=== PATIENT | female | born 1985 | race Caucasian/White ===

== ENCOUNTER 2017-03-26 07:02 | Emergency (ER) | payer MEDICAID ==
[~2017-03-26] VITALS: Ht 162.6 cm; Wt 56.7 kg
--- NOTE | 2017-03-26 07:05 | NUR ---
BB FRIENDS: LACERATION ON ELBOW, RIGHT 5TH DIGIT & PALM, AND RIGHT BUTTOCK S/P FALLING ON A GLASS TABLE X20 MIN [employer]ERK. TETANUS 5 YEARS AGO
--- NOTE | 2017-03-26 11:39 | NUR ---
Patient discharged to home in stable condition. Written and verbal after care instructions given. Patient verbalizes understanding of instruction.
[2017-03-26 11:41] VITALS: BP 123/75
== END 2017-03-26 11:43 | disposition home or self-care (01) ==
LOC: ER 07:03
DX: S51.011A Laceration without foreign body of right elbow, initial encounter (principal); S41.011A Laceration without foreign body of right shoulder, initial encounter; S61.411A Laceration without foreign body of right hand, initial encounter; W19.XXXA Unspecified fall, initial encounter; Y93.89 Activity, other specified; Y92.89 Other specified places as the place of occurrence of the external cause; Y99.8 Other external cause status; S31.811A Laceration without foreign body of right buttock, initial encounter
CPT/HCPCS: 72190-TC; 73080-TC; 73130-TC; A4606; A6402; A6403; J3490; Z7610

== ENCOUNTER 2017-11-16 06:24 | Emergency (ER) | payer MEDICAID ==
[~2017-11-16] VITALS: Ht 160 cm; Wt 59.0 kg
[2017-11-16 06:25] VITALS: BP 122/75
== END 2017-11-16 06:40 | disposition home or self-care (01) ==
LOC: ER 06:28
DX: L03.213 Periorbital cellulitis (principal); J45.909 Unspecified asthma, uncomplicated
CPT/HCPCS: A4606; Z7610

== ENCOUNTER 2019-04-12 02:55 | Emergency (ER) | payer MEDICAID, OTHER ==
[~2019-04-12] VITALS: Ht 160 cm; Wt 57.6 kg
--- NOTE | 2019-04-12 02:57 | NUR ---
CALLED PT TO BE TRIAGED, NO ANSWER
[2019-04-12 03:07] VITALS: BP 146/83
[2019-04-12] MEDS ORDERED: diphenhydrAMINE HCL 50 MG/ML VIAL ONE (03:16)
[2019-04-12] MEDS ORDERED: diphenhydrAMINE HCL 50 MG/ML VIAL IM ONE (03:30)
== END 2019-04-12 03:29 | disposition home or self-care (01) ==
LOC: ER 02:57
DX: R21 Rash and other nonspecific skin eruption (principal); Z98.890 Other specified postprocedural states
CPT/HCPCS: 96372; 99283; J1200